=== PATIENT | male | born 1960 | race Caucasian/White ===

== ENCOUNTER 2024-01-15 08:44 | Emergency (ER) | payer OTHER, SELFPAY ==
[2024-01-15 08:45] VITALS: BP 148/77
[2024-01-15 08:55] VITALS: BMI 21.7
--- NOTE | 2024-01-15 09:38 | ED.GENMED ---
History of Present Illness
General
Chief Complaint: Skin Surface Trauma
Source: patient
Time Seen by Provider: 01/15/24 09:03
Travel History
Have you had any contact with someone who has COVID-19?: No
Do you have any symptoms of coronavirus? Fever > 100 degrees, chills, cough, shortness of breath, sore throat, loss of taste or smell, muscle aches, or headache?: No
History of Present Illness
History of Present Illness:
63-year-old male presents to the emergency room complaining of laceration to his left ring finger. The laceration occurred about 8 PM last evening while pruning trees. A branch unexpectedly snapped back striking him in the hand. He is right-hand
dominant. Tetanus status is unknown.
Past History
Past History
ED Past Medical History: None
Social History
Personal:
Living: with family
Employment: Employed
Phy Exam
Physical Exam
Physical Exam:
General: Awake, Alert, Oriented X3. No acute distress.
Vitals: unremarkable
Head: Atraumatic
Eyes: Pupils equal, EOMI
Abd: Soft, Nontender, No pulsatile mass
Neuro: Nonfocal
Skin: Warm, dry, no rash
Extremities: pulses equal b/l, no edema. Fourth digit left hand noted to have a burst type laceration over the middle phalanx. Laceration length is about 2.5 cm with significant gapping of the wound edges. There is extensive ecchymosis of the
finger particularly distally.
Course
Orders/Labs/Results
Orders:
Orders
01/15/24 08:54
Finger(s)/Thumb 2 View Lt [CR Finger(s)/thumb Min 2 Vw Lt] Urgent
Comment:
Reason For Exam: Left 4th finger- Laceration
Indicate Which Finger:: Little Finger
01/15/24 09:41
Tetanus/Diphth/Acelpertussis [Adacel] 0.5 ml IM .ONCE ONE
01/15/24 10:37
Cephalexin Monohydrate [Keflex] 500 mg PO NOW STA
Vital Signs
Initial and Last Documented VS:
Initial Vital Signs
Temp Pulse Resp BP Pulse Ox
98.0 F 68 16 148/77 98
01/15/24 08:45 01/15/24 08:45 01/15/24 08:45 01/15/24 08:45 01/15/24 08:45
Last Documented Vital Signs
Temp Pulse Resp BP Pulse Ox
98.0 F 68 16 148/77 98
01/15/24 08:45 01/15/24 08:45 01/15/24 08:45 01/15/24 08:45 01/15/24 08:45
Procedures
Laceration Closure
Left Fourth:
Status of Wound: clean
Description of Wound Edges: ragged
Preparation: cleaned with saline
Anesthesia: Digital-Regional (Digital block)
Revision/Debridement: minor revision
Wound exploration: explored to base- no FB
Type of Closure: single layer closure
Skin Closure Material: 4-0 nylon
Number of sutures: 6
MDM/Problems Addressed
Differential Diagnosis Includes:
Laceration, fracture, tendon injury
MDM/Problems Addressed:
Range of motion appears to be intact though it is limited due to pain and swelling. Wound care provided. Digital block administered. Wound was close given the significant nature of it and the fact the edges were quite gaping. I did discuss with
the patient the fact there is an increased risk for infection given we are closing in about 13 hours or so after the injury. X-ray negative for fracture. Bulky dressing applied. Patient advised to keep the dressing intact until Wednesday. Then
change dressing every day and follow-up with hand. Patient states he has a hand surgeon that he would like to make an appointment with.
*Radiology
Radiology exam reviewed: preliminary read by ED provider (I personally the patient's finger x-ray and see no fracture or retained foreign body) and radiology read reviewed
*Pulse Oximetry
Patient hypoxic: no
*Critical Care Note
Total Time (30-74mins, 75-104mins- exclusive of procedures): Not Applicable
ED Attending Note
-
Portions of this chart may have been created with voice recognition software.� Occasional wrong word or��sound alike� substitutions may have occurred due to the inherent limitations of voice recognition software.
Discharge Plan
Departure
Patient Disposition: Home (Routine Discharge)
Date of Disposition: 01/15/24
Time of Disposition: 10:40
Patient with high blood pressure during this ER visit?: Yes
Condition: Good
Discharge Problem:
Finger laceration
Instructions: Laceration Repair With Stitches (DC)
Prescriptions:
New
cephalexin 500 mg capsule
500 mg PO QID Qty: 20 0RF
No Action
hydrocodone-acetaminophen 5 MG/500 MG tablet
1 tab PO .Q4-6HPRN PRN (Reason: PAIN) Qty: 20 0RF
Referrals:
Trevon Chan MD [Family Provider] -
Interventions
Interventions:
*General Assessment Last Done: 01/15/24 08:57
*Neglect/Abuse Screening Last Done: 01/15/24 08:55
ED- Fall Risk Assessment Last Done: 01/15/24 08:55
*ED COVID-19 Vaccine History Last Done: 01/15/24 08:45
*Nursing Disposition Last Done: 01/15/24 10:53
ED-Skin Assessment Last Done: 01/15/24 08:56
Discharge Date and Time
Discharge Date/Time: 01/15/24 10:53
Print Language: BRUNEIAN
[2024-01-15] MEDS: ADACEL 0.5 ML IM (09:47)
[2024-01-15] MEDS: KEFLEX 500 MG PO (10:48)
== END 2024-01-15 10:53 | disposition home or self-care (01) ==
LOC: EMR 08:44
PROVIDERS: EMERGENCY PHYSICIAN Emergency Medicine; FAMILY PHYSICIAN Internal Medicine
DX: S61.215A Laceration without foreign body of left ring finger without damage to nail, initial encounter (principal); W22.8XXA Striking against or struck by other objects, initial encounter; Y93.H2 Activity, gardening and landscaping; Z23 Encounter for immunization; R03.0 Elevated blood-pressure reading, without diagnosis of hypertension
CPT/HCPCS: 64450; 99284; 12001; 90471; 73140; 90715

== ENCOUNTER → 2025-06-11 12:19 | Outpatient (REF) | payer MEDICARE, BC, SELFPAY | LOC: RAD 12:19 | PROVIDERS: ATTENDING PHYSICIAN Urology; FAMILY PHYSICIAN Internal Medicine | DX: R31.29 Other microscopic hematuria (principal); R35.0 Frequency of micturition; N20.0 Calculus of kidney | CPT/HCPCS: 74018; 74178; Q9967 ==